=== PATIENT | female | born 1965 | race Caucasian/White ===

== ENCOUNTER 2019-09-30 13:43 | Emergency (ER) | payer OTHER, SELFPAY ==
[2019-09-30 13:53] VITALS: BP 141/82; PULSE 95; RESP 20; TEMP 36.5; O2SAT 98
--- NOTE | 2019-09-30 14:25 | ED_ITS ---
HPI - Skin/Abscess/Foreign Bdy <MICAELA Velazquez - Last Filed: 09/30/19 14:34> General Chief complaint: Skin/Abscess/Foreign Body Stated complaint: right hand wound Time Seen by Provider: 09/30/19 13:55 Source: patient Mode of arrival: Ambulatory Limitations: no limitations History of Present Illness HPI narrative: The patient is a 53-year-old female nonsmoker with history of type 2 diabetes who presents with a chief complaint of a rash her right hand. She states that she has two circular rashes on her right hand. They're very itchy. They have been there for approximately 4 days. She denies any fevers nausea vomiting or diarrhea. She states that her dog is also scratching at something. They have not been evaluated by their vet. She has tried triple antibiotic ointment, which she states made it worse. Related Data Home Medications Medication Instructions Recorded Confirmed CETIRIZINE HCL (ZYRTEC) 10 mg PO QDAY #30 tab 06/07/16 Lantus U-100 Insulin unit SQ HS #0 06/07/16 [YELLOW PILL FOR KIDN] #0 06/07/16 lisinopril 2.5 mg PO DAILY #0 06/07/16 09/30/19 cyanocobalamin (vitamin B-12) 50 mcg PO QDAY #0 03/19/17 [Vitamin B-12] acyclovir 800 mg PO TID 09/30/19 09/30/19 aspirin 81 mg PO DAILY 09/30/19 09/30/19 hydroxyzine HCl 25 mg PO TID 09/30/19 09/30/19 pravastatin 20 mg PO DAILY 09/30/19 09/30/19 sitagliptin-metformin [Janumet XR] 1 tab PO BID 09/30/19 09/30/19 Previous Rx's Medication Instructions Recorded clotrimazole 1 applictn TOP BID 28 Days #28 gram 09/30/19 Allergies Allergy/AdvReac Type Severity Reaction Status Date / Time diphenhydramine Allergy Severe HIVES, Unverified 01/03/18 12:32 [From BENADRYL] THROAT SWELLING Review of Systems <MICAELA Velazquez - Last Filed: 09/30/19 14:34> Review of Systems Narrative: GENERAL: Denies chills, fatigue, malaise, fever, sweats. HEENT: Denies sinus pain, ear pain, sore throat, difficulty swallowing, dizzine ss. RESPIRATORY: Denies dyspnea, cough, wheezing, hemoptysis, sputum. CARDIOVASCULAR: Denies chest pain, palpitations, orthopnea, edema, GASTROINTESTINAL: Denies nausea, vomiting, abdominal pain, diarrhea, constipation, melena. : Denies dysuria, frequency, incontinence, hematuria, urinary retention. MUSCULOSKELETAL: denies weakness, joint pain, or bony pain SKIN: See HPI NEUROLOGIC: Denies weakness, headache, numbness, change in speech, confusion, seizures, incoordination. PSYCHIATRIC: No concerning psychosocial issues. 12 point review of systems is negative except for those stated above Patient History <ROMERO Velazquez - Last Filed: 09/30/19 14:34> Social History Smoking Status: Never smoker Smoking Status: Never smoker alcohol intake frequency: 0-2 drinks per day Substance Use Type: does not use Exam <MICAELA Velazquez - Last Filed: 09/30/19 14:34> Narrative Exam Narrative: GENERAL: This is a well-nourished, well-developed patient, in no acute distress HEAD: Atraumatic. Normocephalic. No temporal or scalp tenderness. EYES: Pupils equal round and reactive. Extraocular motions intact. No scleral icterus. No injection or drainage. ENT: Nose without bleeding, purulent drainage or septal hematoma. Throat without erythema, tonsillar hypertrophy or exudate. Uvula midline. Airway patent. NECK: Trachea midline. No JVD or lymphadenopathy. Supple, nontender, no meningeal signs. CARDIOVASCULAR: Regular rate and rhythm RESPIRATORY: No cough. No increased respiratory effort. No accessory muscle use. EXTREMITIES: Positive right radial pulse. Full strength noted right hand. Capillary refill less than 2 seconds. BACK: Nontender without deformity or crepitance. No flank tenderness. NEURO: AOx3. SKIN: 2 circular scaling plaques noted on right hand. One is on lateral wrist with slight clear drainage from the border. The 2nd is on the dorsum of the h and. Both her approximately 2-3 cm wide. There is noted to have a raised border. Central clearing is noted. No extending erythema. No purulent discharge Initial Vital Signs Initial Vital Signs: Vital Signs Temperature 97.7 F 09/30/19 13:53 Pulse Rate 95 H 09/30/19 13:53 Respiratory Rate 20 09/30/19 13:53 Blood Pressure 141/82 H 09/30/19 13:53 Pulse Oximetry 98 09/30/19 13:53 <Mckayla Khan MD - Last Filed: 09/30/19 20:04> Initial Vital Signs Initial Vital Signs: Vital Signs Temperature 97.7 F 09/30/19 13:53 Pulse Rate 95 H 09/30/19 13:53 Respiratory Rate 20 09/30/19 13:53 Blood Pressure 141/82 H 09/30/19 13:53 Pulse Oximetry 98 09/30/19 13:53 Course <MICAELA Velazquez - Last Filed: 09/30/19 14:34> Orders Ordered: ED Orders 09/30/19 14:15 Wound Culture and Gram Stain Stat Vital Signs Vital signs: Vital Signs - 8 hr 09/30/19 13:53 09/30/19 14:45 Temperature 97.7 F Pulse Rate 95 H 82 Respiratory Rate 20 18 Blood Pressure 141/82 H Blood Pressure [Right Arm] 123/72 Pulse Oximetry 98 98 <Mckayla Khan MD - Last Filed: 09/30/19 20:04> Orders Ordered: ED Orders 09/30/19 14:15 Wound Culture and Gram Stain Stat Vital Signs Vital signs: Vital Signs - 8 hr 09/30/19 13:53 09/30/19 14:45 Temperature 97.7 F Pulse Rate 95 H 82 Respiratory Rate 20 18 Blood Pressure 141/82 H Blood Pressure [Right Arm] 123/72 Pulse Oximetry 98 98 MDM - Skin/Abscess/Foreign Bdy <MICAELA Velazquez - Last Filed: 09/30/19 14:34> MDM Narrative Medical decision making narrative: The patient is a 53-year-old female who presents with a chief complaint of a rash of wound on her right hand. Exam indicates tinea corporis. There is some clear drainage, so wound culture was obtained. There are no signs of bacterial infection i.e. no spreading redness etcetera. I gave patient a prescription of clotrimazole. Discussed at length following up with primary care provider. Encouraged monitoring her blood sugars of the next few days. Discussed any return precautions including spreading redness, fevers, inability keep down fluids. Patient has been of no questions or concerns upon discharge and state understanding of return precautions as well as follow-up care. Discharge Plan Departure Patient Disposition: Home Clinical Impression: Tinea corporis Discharge Date/Time: 09/30/19 15:00 Instructions: DI for Tinea Corporis Activity Restrictions/Additional Instructions: I sent a prescription of a topical medication to treat your rash to the [facility] pharmacy in [place] Please use this twice today. It can take up to 4 weeks to fully take care of the rash. Please follow-up with primary care provider in the next few days Please come back to the emergency department for any acute concerns. Prescriptions: New clotrimazole 1 % cream 1 applictn TOP BID 28 Days Qty: 28 RF: 0 No Action CETIRIZINE HCL (ZYRTEC) 10 mg PO QDAY Qty: 30 RF: 0 Lantus U-100 Insulin 100 UNIT/1 ML solution SQ HS Qty: 0 RF: 0 lisinopril 2.5 MG tablet 2.5 mg PO DAILY Qty: 0 RF: 0 [YELLOW PILL FOR KIDN] Qty: 0 RF: 0 cyanocobalamin (vitamin B-12) [Vitamin B-12] 50 MCG lozenge 50 mcg PO QDAY Qty: 0 RF: 0 aspirin 81 mg tablet,delayed release (DR/EC) 81 mg PO DAILY RF: 0 acyclovir 800 mg tablet 800 mg PO TID RF: 0 hydroxyzine HCl 25 mg tablet 25 mg PO TID RF: 0 pravastatin 20 mg tablet 20 mg PO DAILY RF: 0 Janumet XR 50-1,000 mg tablet, ER multiphase 24 hr 1 tab PO BID RF: 0 [facility] [Provider Group]
[2019-09-30 14:45] VITALS: BP 123/72; PULSE 82; RESP 18; O2SAT 98
== END 2019-09-30 15:00 | disposition home or self-care (01) ==
PROVIDERS: Emergency Provider Nurse Practitioner Family
DX: B35.4 Tinea corporis (principal)
CPT/HCPCS: 87070; 87077; 87147; 87186; 87205; 99281; 99282